=== PATIENT | male | born 1985 | race African-American/Black ===

== ENCOUNTER 2016-03-06 11:02 | Emergency (ER) | payer SELFPAY ==
[~2016-03-06] VITALS: Ht 188 cm; Wt 75.0 kg
[~2016-03-06 11:02] MED LIST: Z.0.NO CURRENT MEDS
[2016-03-06 11:05] VITALS: BP 134/62; PULSE 49; RESP 12; TEMP 97.7; O2SAT 99
[2016-03-06] MEDS ORDERED: ONDANSETRON ODT 4 MG TAB PO ONE (11:30)
[2016-03-06] MEDS ORDERED: FAMOTIDINE 20 MG TAB PO ONE (11:30)
--- NOTE | 2016-03-06 11:57 | PD ---
HPI Chief Complaint: GI Complaint Time Seen by Provider: 11:24 Travel History International Travel<30 days: No Contact w/Intl Traveler<30days: No Traveled to known affect area: No History of Present Illness HPI 22-year-old man who presents emergent rather woke up this morning with nausea vomiting and periumbilical/epigastric abdominal pain. States he was drinking last night. He drinks most days. No history of NSAID use. No history of previous similar problems. Otherwise has been feeling generally well and healthy. History Past Medical History Medical History: Denies Significant Hx Social History Alcohol Use: Yes (SELDOM) Tobacco Use: No Allergies-Medications (Allergen,Severity, Reaction): Coded Allergies: Penicillin (Verified Allergy, Mild, 03/06/16) Reported Meds & Prescriptions Reported Meds & Active Scripts Active No Active Prescriptions or Reported Medications Review of Systems Except as stated in HPI: all other systems reviewed are Neg Physical Exam Narrative GENERAL: 22 year-old man, appears a little bit unwell, nontoxic. SKIN: Warm, little bit of diaphoresis on the brow. HEAD: Atraumatic. Normocephalic. EYES: Pupils equal and round. No scleral icterus. No injection or drainage. ENT: No nasal bleeding or discharge. Mucous membranes pink and moist. NECK: Trachea midline. No JVD. CARDIOVASCULAR: Regular rate and rhythm. No murmur appreciated. RESPIRATORY: No accessory muscle use. Clear to auscultation. Breath sounds equal bilaterally. GASTROINTESTINAL: Admits flat. Soft throughout. Some mild epigastric tenderness. No rebound or guarding. Negative Singer's. MUSCULOSKELETAL: No obvious deformities. No edema. NEUROLOGICAL: Awake and alert. No obvious cranial nerve deficits. Motor grossly within normal limits. Normal speech. Data Data Last Documented VS Vital Signs Date Time Temp Pulse Resp B/P Pulse Ox O2 Delivery O2 Flow Rate FiO2 03/06/16 11:30 16 03/06/16 11:05 97.7 49 134/62 99 Room Air Orders Complete Blood Count With Diff (03/06/16 11:24) Comprehensive Metabolic Panel (03/06/16 11:24) Lipase (03/06/16 11:24) Ondansetron Odt (Zofran Odt) (03/06/16 11:30) Famotidine (Pepcid) (03/06/16 11:30) Labs Laboratory Tests Test 03/06/16 11:40 White Blood Count 15.2 TH/MM3 Red Blood Count 4.81 MIL/MM3 Hemoglobin 13.9 GM/DL Hematocrit 42.1 % Mean Corpuscular Volume 87.5 FL Mean Corpuscular Hemoglobin 28.9 PG Mean Corpuscular Hemoglobin 33.1 % Concent Red Cell Distribution Width 13.6 % Platelet Count 186 TH/MM3 Mean Platelet Volume 8.5 FL Neutrophils (%) (Auto) 90.0 % Lymphocytes (%) (Auto) 5.9 % Monocytes (%) (Auto) 3.8 % Eosinophils (%) (Auto) 0.0 % Basophils (%) (Auto) 0.3 % Neutrophils # (Auto) 13.7 TH/MM3 Lymphocytes # (Auto) 0.9 TH/MM3 Monocytes # (Auto) 0.6 TH/MM3 Eosinophils # (Auto) 0.0 TH/MM3 Basophils # (Auto) 0.0 TH/MM3 CBC Comment AUTO DIFF Sodium Level 141 MEQ/L Potassium Level 4.3 MEQ/L Chloride Level 105 MEQ/L Carbon Dioxide Level 27.3 MEQ/L Anion Gap 9 MEQ/L Blood Urea Nitrogen 23 MG/DL Creatinine 1.07 MG/DL Estimat Glomerular Filtration 100 ML/MIN Rate Random Glucose 85 MG/DL Calcium Level 9.4 MG/DL Total Bilirubin 0.7 MG/DL Aspartate Amino Transf 290 U/L (AST/SGOT) Alanine Aminotransferase 164 U/L (ALT/SGPT) Alkaline Phosphatase 64 U/L Total Protein 7.8 GM/DL Albumin 4.7 GM/DL Lipase 74 U/L MDM Medical Decision Making Medical Screen Exam Complete: Yes Emergency Medical Condition: Yes Interpretation(s) LABS: CBC is unremarkable CMP remarkable for elevated AST and ALT, Differential Diagnosis Gastritis, pancreatitis, gastroenteritis, cholecystitis, other Narrative Course Medical decision making Patient seen in triage. 22 year-old man presents to the emergency department complaining of epigastric and mid abdominal pain associated with vomiting. Suspect gastritis. Hepatobiliary disease or pancreatitis also possible. Benign abdominal exam. We'll check labs, supportive treatment. Diagnosis Primary Impression: Gastritis Qualified Code: K29.20 - Acute alcoholic gastritis without hemorrhage Additional Impression: Alcoholic hepatitis Qualified Code: K70.10 - Alcoholic hepatitis without ascites Additional Instructions: Take ranitidine as prescribed. Use Zofran as needed for nausea or vomiting. Follow-up with your primary doctor in the next 2-4 days. Stop drinking alcohol today her symptoms completely resolved. Med/Other Pt SpecificInfo: Prescription(s) given Scripts Ranitidine 150 Mg [id number] Mg PO BID #60 TAB Ref 0 Prov:Raúl Rincon MD 03/06/16 Ondansetron Odt (Zofran Odt)4 Mg Tab4 Mg SL Q8HR PRN (Nausea/Vomiting) #15 TAB May substitute non-ODT form. Prov:Raúl Rincon MD 03/06/16 Disposition: 01 DISCHARGE HOME Condition: Stable Raúl Rincon MD Mar 06, 2016 11:57
[2016-03-06 12:03] LABS: AUTOMATED NEUTROPHIL # 13.7 TH/MM3 (1.8-7.7); BASOPHIL % 0.3 % (0.0-2.0); HEMATOCRIT 42.1 % (39.0-51.0); LYMPH % 5.9 % (9.0-44.0); LYMPHOCYTE # 0.9 TH/MM3 (1.0-4.8); MEAN CELL VOLUME 87.5 FL (80.0-100.0); MEAN CORPUSCULAR HEMOGLOBIN 28.9 PG (27.0-34.0); MEAN CORPUSCULAR HGB CONC 33.1 % (32.0-36.0); MONO % 3.8 % (0.0-8.0); PLATELET COUNT 186 TH/MM3 (150-450); RED BLOOD COUNT 4.81 MIL/MM3 (4.50-5.90); RED CELL DISTRIBUTION WIDTH 13.6 % (11.6-17.2); WHITE BLOOD COUNT 15.2 TH/MM3 (4.0-11.0)
[2016-03-06 12:07] LABS: HEMO FLAGS AUTO DIFF
[2016-03-06 12:23] LABS: ALKALINE PHOSPHATASE 64 U/L (45-117); TOTAL BILIRUBIN ADULT 0.7 MG/DL (0.2-1.0)
[2016-03-06 12:25] LABS: ALT (GPT) 164 U/L (12-78); ANION GAP 9 MEQ/L (5-15); AST (GOT) 290 U/L (15-37); BICARBONATE 27.3 MEQ/L (21.0-32.0); BLOOD UREA NITROGEN 23 MG/DL (7-18); CHLORIDE 105 MEQ/L (98-107); GLOMERULAR FILTRATION RATE 100 ML/MIN (>89); POTASSIUM 4.3 MEQ/L (3.5-5.1); SODIUM (NA) 141 MEQ/L (136-145)
[2016-03-06] MEDS ORDERED: ZOFR4TAB3 SL (12:42)
[2016-03-06] MEDS ORDERED: RANI150T PO (12:42)
[2016-03-06 12:46] LABS: SCAN/DIFF AUTO DIFF CONFIRMED
== END 2016-03-06 12:49 | disposition home or self-care (01) ==
LOC: NETRI 11:02
DX: K29.20 Alcoholic gastritis without bleeding (principal); K70.10 Alcoholic hepatitis without ascites; R10.33 Periumbilical pain; R10.13 Epigastric pain
CPT/HCPCS: 80053; 83690; 85025; 99284